=== PATIENT | female | born 1940 | race Caucasian/White ===

== ENCOUNTER 2020-01-10 15:01 | Outpatient (CLI) | payer MEDICARE, OTHER ==
[~2020-01-10 15:01] MED LIST: ASPI-605 PO; ATOR10TA GT; ATOR40TA PO; CLOP75TA15 PO; METO-295 PO
== END 2020-01-10 23:59 | disposition home or self-care (01) ==
LOC: MSC 15:01
PROVIDERS: ATTEND Internal Medicine
DX: G30.9 Alzheimer's disease, unspecified (principal); F02.80 Dementia in other diseases classified elsewhere, unspecified severity, without behavioral disturbance, psychotic disturbance, mood disturbance, and anxiety; I25.10 Atherosclerotic heart disease of native coronary artery without angina pectoris; M19.90 Unspecified osteoarthritis, unspecified site; E78.5 Hyperlipidemia, unspecified; G47.00 Insomnia, unspecified; Z87.898 Personal history of other specified conditions; H91.10 Presbycusis, unspecified ear

== ENCOUNTER 2020-02-05 09:36 | Outpatient (CLI) | payer MEDICARE, OTHER | END 2020-02-05 23:59 | disposition home or self-care (01) | LOC: MSC 09:36 | PROVIDERS: ATTEND Internal Medicine | DX: G30.9 Alzheimer's disease, unspecified (principal); F02.80 Dementia in other diseases classified elsewhere, unspecified severity, without behavioral disturbance, psychotic disturbance, mood disturbance, and anxiety; I25.10 Atherosclerotic heart disease of native coronary artery without angina pectoris; M19.90 Unspecified osteoarthritis, unspecified site; E78.5 Hyperlipidemia, unspecified; G47.00 Insomnia, unspecified; Z87.898 Personal history of other specified conditions; H91.10 Presbycusis, unspecified ear; Z79.899 Other long term (current) drug therapy ==

== ENCOUNTER 2020-03-04 09:44 | Outpatient (CLI) | payer MEDICARE, OTHER | END 2020-03-04 23:59 | disposition home or self-care (01) | LOC: MSC 09:44 | PROVIDERS: ATTEND Internal Medicine | DX: G30.9 Alzheimer's disease, unspecified (principal); F02.80 Dementia in other diseases classified elsewhere, unspecified severity, without behavioral disturbance, psychotic disturbance, mood disturbance, and anxiety; H91.10 Presbycusis, unspecified ear; I25.10 Atherosclerotic heart disease of native coronary artery without angina pectoris; M19.90 Unspecified osteoarthritis, unspecified site; E78.5 Hyperlipidemia, unspecified; G47.00 Insomnia, unspecified; Z87.898 Personal history of other specified conditions; Z95.5 Presence of coronary angioplasty implant and graft; Z79.899 Other long term (current) drug therapy ==

== ENCOUNTER 2020-06-03 10:10 | Outpatient (CLI) | payer MEDICARE, OTHER ==
[2020-06-03 11:53] LABS: BASOPHILS % (AUTO) 0.3 % (0.0-2.0); EOSINOPHILS % (AUTO) 0.4 % (0.0-6.0); HEMATOCRIT 40 % (33-45); HEMOGLOBIN 13.1 g/dL (11.5-14.8); LYMPHOCYTES # (AUTO) 1.2 /CMM (0.8-4.8); LYMPHOCYTES % (AUTO) 13.2 % (20.0-44.0); MEAN CORPUSCULAR HGB CONC 33 g/dl (31.0-36.0); MEAN CORPUSCULAR VOLUME 92 fL (82-100); MONOCYTES # (AUTO) 0.6 /CMM (0.1-1.30); MONOCYTES % (AUTO) 6.7 % (2.0-12.0); NEUTROPHILS # (AUTO) 7.3 /CMM (1.8-8.9); NEUTROPHILS % (AUTO) 79.4 % (43.0-81.0); PLATELET COUNT (AUTO) 155 /CMM (150-450); RED BLOOD CELL COUNT(AUTO) 4.32 MIL/uL (4.0-5.2); WHITE BLOOD COUNT (AUTO) 9.2 K/uL (4.3-11.0)
[2020-06-03 11:59] LABS: THYROID STIMULATING HORMONE 3.516 uIU/mL (0.358-3.74)
[2020-06-03 12:02] LABS: BILIRUBIN,URINE NEGATIVE (NEGATIVE); LEUKOCYTE ESTERASE ,URINE NEGATIVE (NEGATIVE); NITRITE, URINE NEGATIVE (NEGATIVE); PH,URINE 7.5 (5.0-8.0); PROTEIN,URINE NEGATIVE (NEGATIVE); UGLUCOSE NEGATIVE (NEGATIVE); UROBILINOGEN,URINE 0.2 EU/dL (0.2)
[2020-06-03 12:03] LABS: COLOR,URINE STRAW (YELLOW)
[2020-06-03 12:14] LABS: ALBUMIN 3.7 g/dL (3.4-5.0); BILIRUBIN,TOTAL 0.5 mg/dL (0.2-1.0); CALCIUM, SERUM 9.2 mg/dL (8.5-10.1); CREATININE 0.8 mg/dL (0.6-1.3); MAGNESIUM 2.3 mg/dL (1.8-2.4); PHOSPHORUS 3.9 mg/dL (2.5-4.9); POTASSIUM 4.2 mmol/L (3.5-5.1)
== END 2020-06-03 23:59 | disposition home or self-care (01) ==
LOC: MSC 10:10
PROVIDERS: ATTEND Internal Medicine
DX: G30.9 Alzheimer's disease, unspecified (principal); F02.80 Dementia in other diseases classified elsewhere, unspecified severity, without behavioral disturbance, psychotic disturbance, mood disturbance, and anxiety; I25.10 Atherosclerotic heart disease of native coronary artery without angina pectoris; Z95.5 Presence of coronary angioplasty implant and graft; M19.90 Unspecified osteoarthritis, unspecified site; E78.5 Hyperlipidemia, unspecified; G47.00 Insomnia, unspecified; Z87.898 Personal history of other specified conditions; R63.6 Underweight; Z68.1 Body mass index [BMI] 19.9 or less, adult; H91.10 Presbycusis, unspecified ear; Z79.899 Other long term (current) drug therapy; Z96.653 Presence of artificial knee joint, bilateral; H91.90 Unspecified hearing loss, unspecified ear
CPT/HCPCS: 36415; 80053; 80061; 81003; 82607; 82746; 83735; 84100; 84443; 85025; 87086; G0463

== ENCOUNTER → 2020-08-04 | Outpatient (CLI) | payer MEDICARE, OTHER | END | disposition home or self-care (01) | LOC: MSC 10:18 | PROVIDERS: ATTEND Internal Medicine | DX: G30.9 Alzheimer's disease, unspecified (principal); F02.80 Dementia in other diseases classified elsewhere, unspecified severity, without behavioral disturbance, psychotic disturbance, mood disturbance, and anxiety; I25.10 Atherosclerotic heart disease of native coronary artery without angina pectoris; M19.90 Unspecified osteoarthritis, unspecified site; E78.5 Hyperlipidemia, unspecified; G47.00 Insomnia, unspecified; Z87.898 Personal history of other specified conditions; H91.10 Presbycusis, unspecified ear; Z79.82 Long term (current) use of aspirin; Z79.899 Other long term (current) drug therapy ==

== ENCOUNTER 2020-08-11 11:45 | Outpatient (CLI) | payer MEDICARE | END 2020-08-11 23:59 | disposition home or self-care (01) | LOC: MSC 11:45 | PROVIDERS: ATTEND Internal Medicine | DX: G30.9 Alzheimer's disease, unspecified (principal); F02.80 Dementia in other diseases classified elsewhere, unspecified severity, without behavioral disturbance, psychotic disturbance, mood disturbance, and anxiety; G47.00 Insomnia, unspecified; I25.10 Atherosclerotic heart disease of native coronary artery without angina pectoris; Z95.5 Presence of coronary angioplasty implant and graft; M19.90 Unspecified osteoarthritis, unspecified site; E78.5 Hyperlipidemia, unspecified; Z87.898 Personal history of other specified conditions; H91.10 Presbycusis, unspecified ear ==

== ENCOUNTER 2020-08-20 11:45 | Outpatient (CLI) | payer MEDICARE | END 2020-08-20 23:59 | disposition home or self-care (01) | LOC: MSC 11:45 | PROVIDERS: ATTEND Internal Medicine | DX: G30.9 Alzheimer's disease, unspecified (principal); F02.80 Dementia in other diseases classified elsewhere, unspecified severity, without behavioral disturbance, psychotic disturbance, mood disturbance, and anxiety; I25.10 Atherosclerotic heart disease of native coronary artery without angina pectoris; Z95.5 Presence of coronary angioplasty implant and graft; M19.90 Unspecified osteoarthritis, unspecified site; E78.5 Hyperlipidemia, unspecified; G47.00 Insomnia, unspecified; Z87.898 Personal history of other specified conditions; H91.10 Presbycusis, unspecified ear; Z79.899 Other long term (current) drug therapy ==

== ENCOUNTER → 2020-10-22 | Outpatient (CLI) | payer MEDICARE | END | disposition home or self-care (01) | LOC: MSC 10:00 | PROVIDERS: ATTEND Internal Medicine | DX: G30.9 Alzheimer's disease, unspecified (principal); F02.80 Dementia in other diseases classified elsewhere, unspecified severity, without behavioral disturbance, psychotic disturbance, mood disturbance, and anxiety; I25.10 Atherosclerotic heart disease of native coronary artery without angina pectoris; Z95.5 Presence of coronary angioplasty implant and graft; M19.90 Unspecified osteoarthritis, unspecified site; E78.5 Hyperlipidemia, unspecified; G47.00 Insomnia, unspecified; Z87.898 Personal history of other specified conditions; H91.90 Unspecified hearing loss, unspecified ear ==

== ENCOUNTER 2021-02-16 10:56 | Outpatient (CLI) | payer MEDICARE | END 2021-02-16 23:59 | disposition home or self-care (01) | LOC: MSC 10:56 | PROVIDERS: ATTEND Internal Medicine | DX: G30.9 Alzheimer's disease, unspecified (principal); F02.80 Dementia in other diseases classified elsewhere, unspecified severity, without behavioral disturbance, psychotic disturbance, mood disturbance, and anxiety; R32 Unspecified urinary incontinence; I25.10 Atherosclerotic heart disease of native coronary artery without angina pectoris; Z79.82 Long term (current) use of aspirin; M19.90 Unspecified osteoarthritis, unspecified site; E78.5 Hyperlipidemia, unspecified; G47.00 Insomnia, unspecified; Z87.898 Personal history of other specified conditions; H91.10 Presbycusis, unspecified ear ==

== ENCOUNTER → 2021-02-22 | Outpatient (CLI) | payer MEDICARE | END | disposition home or self-care (01) | LOC: MSC 14:00 | PROVIDERS: ATTEND Internal Medicine | DX: R32 Unspecified urinary incontinence (principal); G30.9 Alzheimer's disease, unspecified; F02.80 Dementia in other diseases classified elsewhere, unspecified severity, without behavioral disturbance, psychotic disturbance, mood disturbance, and anxiety; I25.10 Atherosclerotic heart disease of native coronary artery without angina pectoris; Z95.5 Presence of coronary angioplasty implant and graft; Z79.82 Long term (current) use of aspirin; M19.90 Unspecified osteoarthritis, unspecified site; E78.5 Hyperlipidemia, unspecified; G47.00 Insomnia, unspecified; Z87.898 Personal history of other specified conditions; H91.10 Presbycusis, unspecified ear ==

== ENCOUNTER 2021-03-02 15:14 | Outpatient (CLI) | payer MEDICARE ==
[2021-03-02 16:37] LABS: BILIRUBIN,URINE NEGATIVE (NEGATIVE); COLOR,URINE YELLOW (YELLOW); LEUKOCYTE ESTERASE ,URINE NEGATIVE (NEGATIVE); NITRITE, URINE NEGATIVE (NEGATIVE); PH,URINE 5.5 (5.0-8.0); PROTEIN,URINE NEGATIVE (NEGATIVE); UGLUCOSE NEGATIVE (NEGATIVE); UROBILINOGEN,URINE 0.2 EU/dL (0.2)
[2021-03-02 17:16] LABS: SQUAMOUS EPITHELIAL CELL,UR Many /HPF (None Seen)
[2021-03-02 17:17] LABS: BACTERIA,URINE Rare /HPF (None Seen); RBC,URINE 0-2 /HPF (0-2)
== END 2021-03-02 23:59 | disposition home or self-care (01) ==
LOC: MSC 15:14
PROVIDERS: ATTEND Internal Medicine
DX: N39.0 Urinary tract infection, site not specified (principal); R32 Unspecified urinary incontinence; G30.9 Alzheimer's disease, unspecified; F02.80 Dementia in other diseases classified elsewhere, unspecified severity, without behavioral disturbance, psychotic disturbance, mood disturbance, and anxiety; I25.10 Atherosclerotic heart disease of native coronary artery without angina pectoris; Z95.5 Presence of coronary angioplasty implant and graft; Z79.82 Long term (current) use of aspirin; M19.90 Unspecified osteoarthritis, unspecified site; E78.5 Hyperlipidemia, unspecified; G47.00 Insomnia, unspecified; Z87.898 Personal history of other specified conditions; H91.10 Presbycusis, unspecified ear; Z79.899 Other long term (current) drug therapy
CPT/HCPCS: 81001; 87086; G0463

== ENCOUNTER → 2021-03-05 | Outpatient (CLI) | payer MEDICARE | END | disposition home or self-care (01) | LOC: MSC 09:00 | PROVIDERS: ATTEND Internal Medicine | DX: R15.9 Full incontinence of feces (principal); Z87.440 Personal history of urinary (tract) infections; R32 Unspecified urinary incontinence; G30.9 Alzheimer's disease, unspecified; F02.80 Dementia in other diseases classified elsewhere, unspecified severity, without behavioral disturbance, psychotic disturbance, mood disturbance, and anxiety; I25.10 Atherosclerotic heart disease of native coronary artery without angina pectoris; Z95.5 Presence of coronary angioplasty implant and graft; Z79.82 Long term (current) use of aspirin; M19.90 Unspecified osteoarthritis, unspecified site; E78.5 Hyperlipidemia, unspecified; G47.00 Insomnia, unspecified; Z87.898 Personal history of other specified conditions; H91.10 Presbycusis, unspecified ear ==

== ENCOUNTER 2021-03-09 09:00 | Outpatient (CLI) | payer MEDICARE | END 2021-03-09 23:59 | disposition home or self-care (01) | LOC: MSC 09:00 | PROVIDERS: ATTEND Internal Medicine | DX: R15.9 Full incontinence of feces (principal); G30.9 Alzheimer's disease, unspecified; F02.80 Dementia in other diseases classified elsewhere, unspecified severity, without behavioral disturbance, psychotic disturbance, mood disturbance, and anxiety; R32 Unspecified urinary incontinence; N39.0 Urinary tract infection, site not specified; I25.10 Atherosclerotic heart disease of native coronary artery without angina pectoris; Z95.5 Presence of coronary angioplasty implant and graft; M19.90 Unspecified osteoarthritis, unspecified site; E78.5 Hyperlipidemia, unspecified; G47.00 Insomnia, unspecified; Z87.898 Personal history of other specified conditions; H91.10 Presbycusis, unspecified ear ==

== ENCOUNTER 2021-03-16 09:14 | Outpatient (CLI) | payer MEDICARE | END 2021-03-16 23:59 | LOC: MSC 09:14 | PROVIDERS: ATTEND Internal Medicine | DX: R15.9 Full incontinence of feces (principal); R32 Unspecified urinary incontinence; G30.9 Alzheimer's disease, unspecified; F02.80 Dementia in other diseases classified elsewhere, unspecified severity, without behavioral disturbance, psychotic disturbance, mood disturbance, and anxiety; Z87.440 Personal history of urinary (tract) infections; I25.10 Atherosclerotic heart disease of native coronary artery without angina pectoris; Z95.5 Presence of coronary angioplasty implant and graft; M19.90 Unspecified osteoarthritis, unspecified site; E78.5 Hyperlipidemia, unspecified; G47.00 Insomnia, unspecified; Z87.898 Personal history of other specified conditions; H91.10 Presbycusis, unspecified ear; Z79.82 Long term (current) use of aspirin; Z79.899 Other long term (current) drug therapy ==

== ENCOUNTER 2025-02-11 09:04 | Inpatient (IN) | payer MEDICARE ==
[~2025-02-11] VITALS: Ht 160 cm; Wt 39.9 kg
[2025-02-11] VITALS (13 sets, daily range): BP systolic 99–158; BP diastolic 57–144; TEMP 97.8; O2SAT 90–99
[2025-02-11] MEDS ORDERED: ACETAMINOPHEN 650 MG/SUPP.RECT RC ONE (09:19)
[2025-02-11] MEDS ORDERED: ACETAMINOPHEN 325 MG/SUPP.RECT RC ONE (09:19)
[2025-02-11] MEDS: ACETAMINOPHEN 650 MG/SUPP.RECT RC ONE (09:22)
[2025-02-11] MEDS: IV NS 0.9% 1,000 ML BAG IV ONE (09:25)
[2025-02-11 09:26] LABS: PLATELET COUNT (AUTO) 189 K/uL (150-450); RED BLOOD CELL COUNT(AUTO) 4.62 MIL/uL (4.0-5.2); RED CELL DISTRIBUTION WIDTH 13.2 % (11.5-15.0); WHITE BLOOD COUNT (AUTO) 20.2 K/uL (4.3-11.0)
[2025-02-11 09:38] LABS: INR 1.1 (0.91-1.10)
[2025-02-11] MEDS: CEFEPIME 1 GM in IV D5W 50 ML IV ONE (09:39)
[2025-02-11 09:43] LABS: LACTIC ACID 3.2 mmol/L (0.4-2.0)
[2025-02-11 09:46] LABS: CALCIUM, SERUM 8.6 mg/dL (8.5-10.1); CREATININE 0.8 mg/dL (0.6-1.3); SODIUM SERUM 142 mmol/L (136-145); UREA NITROGEN, BLOOD 17 mg/dL (7-18)
[2025-02-11 09:51] LABS: ASPARTATE AMINOTRANSFERASE 21 U/L (15-37); TOTAL PROTEIN, SERUM 7.1 g/dL (6.4-8.2)
[2025-02-11 09:52] LABS: BAND % (MANUAL) 2 % (0.0-5.0); LYMPHOCYTES % (MANUAL) 2 % (16-48); MONOCYTES % (MANUAL) 6 % (0-11.0); NEUTROPHILS % (MANUAL) 90 (42-76); PLATELET ESTIMATE ADEQUATE
[2025-02-11] MEDS: VANCOMYCIN 1 GM in IV D5W 250 ML IV ONE (09:57)
[2025-02-11 10:21] LABS: APPEARANCE,URINE TURBID (CLEAR); BLOOD, URINE 1+ Ery/uL (NEGATIVE); LEUKOCYTE ESTERASE ,URINE NEGATIVE (NEGATIVE); NITRITE, URINE POSITIVE (NEGATIVE); UGLUCOSE NEGATIVE (NEGATIVE)
[2025-02-11 10:30] LABS: ADD URINE CULTURE YES; SQUAMOUS EPITHELIAL CELL,UR 0-2 /HPF (None Seen); URINE AMORPHOUS URATE Moderate /HPF (None Seen)
[2025-02-11] MEDS ORDERED: CT SWABBABLE VALVE TRANS SET 1 EA INFUS.SET MC ONE (10:50)
[2025-02-11] MEDS ORDERED: IOHEXOL-300 100 ML VIAL IV ONE (10:50)
[2025-02-11] MEDS ORDERED: IV NS 0.9% 250 ML IV ONE (10:50)
[2025-02-11] MEDS ORDERED: CARB1TAB21 PO ×2 (11:05)
[2025-02-11] MEDS ORDERED: ACET325T53 PO ×2 (11:05)
[2025-02-11] MEDS ORDERED: LACT-214 PO (11:05)
[2025-02-11] MEDS ORDERED: ATOR40TA PO (11:05)
[2025-02-11] MEDS ORDERED: POLY50DR EACHEYE (11:05)
[2025-02-11] MEDS ORDERED: MAG-135 PO (11:05)
[2025-02-11] MEDS ORDERED: TRAZ-182 PO (11:05)
[2025-02-11] MEDS ORDERED: SENN-287 PO (11:05)
[2025-02-11] MEDS ORDERED: DIVA125C5 PO (11:05)
[2025-02-11] MEDS ORDERED: MAGN400O6 PO (11:05)
[2025-02-11] MEDS ORDERED: LOPE2TAB25 PO (11:05)
[2025-02-11] MEDS ORDERED: HYOS-17 SL (11:05)
[2025-02-11] MEDS ORDERED: ONDA4TAB5 PO (11:05)
[2025-02-11] MEDS ORDERED: SODI650T PO (11:05)
[2025-02-11] MEDS ORDERED: DOSING PER PHARMACY-CEFEPIME IVPB XX PRN (12:30)
[2025-02-11] MEDS ORDERED: ACETAMINOPHEN 325 MG TABLET PO PRN (12:30)
[2025-02-11] MEDS ORDERED: DOSING PER PHARMACY-VANCOMYCIN IV XX PRN (12:30)
[2025-02-11] MEDS ORDERED: ONDANSETRON HCL/PF 4 MG/2 ML VIAL IVP PRN (12:30)
[2025-02-11] MEDS ORDERED: MORPHINE SULFATE INJ 2 MG/ML DISP.SYRIN IV PRN (12:30)
[2025-02-11] MEDS: IV NS 0.9% 1,000 ML IV SCH (13:03)
[2025-02-11 13:25] LABS: ABG BASE EXCESS -4.5 mmol/L (-2.0-3.0); ABG OXYGEN SATURATION 97.6 % (94.0-98.0); ABG PCO2 30.3 mmHg (32.0-45.0); ABG PH 7.415 (7.350-7.450); ABG PO2 108.9 mmHg (83.0-108.0); ABG TOTAL HEMOGLOBIN 12.5 G/dL (12.0-16.0); FLOW, BLOOD GAS 8.00 L/min (0.00-30.00); FRACTIONATED INSPIRED OXYGEN 52.0 %; SITE, ABG RIGHT RADIAL
[2025-02-11] MEDS: ALBUTEROL FS 2.5 MG/3 ML VIAL.NEB NEB SCH (13:33)
[2025-02-11] MEDS: IPRATROPIUM NEB FS 0.5 MG/2.5 ML AMPUL.NEB NEB SCH (13:33)
[2025-02-11] MEDS: DOCUSATE SODIUM LIQ 100 MG/10 ML UDC PO SCH (17:00)
[2025-02-11] MEDS ORDERED: LORAZEPAM 4 MG/ML VIAL IV PRN (17:00)
[2025-02-11] MEDS: CARBIDOPA/LEVODOPA 25/100 MG 1 UDTAB PO SCH ×2 (17:00→22:00)
[2025-02-11] MEDS: DIVALPROEX SODIUM 125 MG CAP.SPRINK PO SCH (17:20)
[2025-02-11] MEDS: CEFEPIME 2 GM in IV D5W 100 ML IV SCH (20:31)
[2025-02-11] MEDS: HEPARIN SODIUM, PORCINE 5000 UNITS/1 ML VIAL SQ SCH (20:33)
[2025-02-11] MEDS: TRAZODONE 50 MG TABLET PO SCH (22:00)
[2025-02-11] MEDS: ATORVASTATIN 40 MG TABLET PO SCH (22:00)
[2025-02-12] VITALS (32 sets, daily range): BP systolic 89–167; BP diastolic 49–143; TEMP 96.9–98; O2SAT 95–100
[2025-02-12 04:42] LABS: PLATELET COUNT (AUTO) 150 K/uL (150-450); RED BLOOD CELL COUNT(AUTO) 3.92 MIL/uL (4.0-5.2); RED CELL DISTRIBUTION WIDTH 13.5 % (11.5-15.0); WHITE BLOOD COUNT (AUTO) 15.4 K/uL (4.3-11.0)
[2025-02-12 05:04] LABS: ASPARTATE AMINOTRANSFERASE 12.0 U/L (15-37); CALCIUM, SERUM 8.7 mg/dL (8.5-10.1); CREATININE 0.7 mg/dL (0.6-1.3); PHOSPHORUS 2.3 mg/dL (2.5-4.9); SODIUM SERUM 144.0 mmol/L (136-145); TOTAL PROTEIN, SERUM 5.9 g/dL (6.4-8.2); UREA NITROGEN, BLOOD 13.0 mg/dL (7-18)
[2025-02-12] MEDS: ARTIFICIAL TEARS 15 ML BOTTLE EACHEYE SCH (08:38)
[2025-02-12] MEDS: POLYETHYLENE GLYCOL 3350 17 GM POWD.PACK PO SCH (09:00)
[2025-02-12] MEDS: CLOPIDOGREL BISULFATE 75 MG TABLET PO SCH (09:00)
[2025-02-12] MEDS: LACTOSE-FREE FOOD 237 ML BOTTLE PO SCH (09:00)
[2025-02-12] MEDS: VANCOMYCIN 750 MG in IV D5W 250 ML IV SCH (09:34)
[2025-02-12] MEDS: IV NS 0.9% 1,000 ML IV PRN (09:41)
[2025-02-12] MEDS: Sodium Phosphate 15 MMOL in IV NS 0.9% 245 ML IV ONE (17:03)
[2025-02-13] VITALS (23 sets, daily range): BP systolic 112–155; BP diastolic 59–110; TEMP 97.7–98.4; O2SAT 96–100
[2025-02-13 05:14] LABS: PLATELET COUNT (AUTO) 157 K/uL (150-450); RED BLOOD CELL COUNT(AUTO) 3.77 MIL/uL (4.0-5.2); RED CELL DISTRIBUTION WIDTH 13.1 % (11.5-15.0); WHITE BLOOD COUNT (AUTO) 15.6 K/uL (4.3-11.0)
[2025-02-13 05:18] LABS: CALCIUM, SERUM 7.2 mg/dL (8.5-10.1); CREATININE 0.4 mg/dL (0.6-1.3); PHOSPHORUS 2.9 mg/dL (2.5-4.9); SODIUM SERUM 142.0 mmol/L (136-145); UREA NITROGEN, BLOOD 12.0 mg/dL (7-18)
[2025-02-13] MEDS: POTASSIUM CL. PREMIX PERIPHER. 50 ML IV SCH (10:38)
[2025-02-14] VITALS (15 sets, daily range): BP systolic 117–166; BP diastolic 50–151; TEMP 97.5–98.1; O2SAT 87–98
[2025-02-14] MEDS: ALBUTEROL FS 2.5 MG/0.5 ML VIAL.NEB NEB PRN (01:39)
[2025-02-14 07:21] LABS: PLATELET COUNT (AUTO) 167 K/uL (150-450); RED BLOOD CELL COUNT(AUTO) 3.81 MIL/uL (4.0-5.2); RED CELL DISTRIBUTION WIDTH 13.6 % (11.5-15.0); WHITE BLOOD COUNT (AUTO) 13.4 K/uL (4.3-11.0)
[2025-02-14 07:42] LABS: CALCIUM, SERUM 8.2 mg/dL (8.5-10.1); CREATININE 0.4 mg/dL (0.6-1.3); PHOSPHORUS 2.6 mg/dL (2.5-4.9); SODIUM SERUM 141.0 mmol/L (136-145); UREA NITROGEN, BLOOD 12.0 mg/dL (7-18)
[2025-02-14] MEDS: HYOSCYAMINE SULFATE 0.125 MG TAB.SUBL SL PRN (08:58)
[2025-02-14] MEDS: ENSURE ENLIVE 237 ML LIQUID (VANILLA) PO SCH (12:07)
[2025-02-14] MEDS ORDERED: LORAZEPAM INJ 2 MG/ML VIAL IV PRN (15:00)
[2025-02-14] MEDS: MAGNESIUM HYDROXIDE 30 ML UDC PO PRN (21:47)
[2025-02-14] MEDS: VANCOMYCIN 500 MG in IV D5W 100ml IV SCH (22:15)
[2025-02-14] MEDS ORDERED: VANCOMYCIN 750 MG in IV D5W 250 ML IV SCH (23:00)
[2025-02-15] VITALS (14 sets, daily range): BP systolic 91–116; BP diastolic 69–90; TEMP 97.7–99; O2SAT 93–98
[2025-02-15 07:46] LABS: PLATELET COUNT (AUTO) 173 K/uL (150-450); RED BLOOD CELL COUNT(AUTO) 4.28 MIL/uL (4.0-5.2); RED CELL DISTRIBUTION WIDTH 13.1 % (11.5-15.0); WHITE BLOOD COUNT (AUTO) 14.0 K/uL (4.3-11.0)
[2025-02-15 08:00] LABS: CALCIUM, SERUM 8.4 mg/dL (8.5-10.1); CREATININE 0.4 mg/dL (0.6-1.3); SODIUM SERUM 138.0 mmol/L (136-145); UREA NITROGEN, BLOOD 10.0 mg/dL (7-18)
[2025-02-15 09:46] LABS: LYMPHOCYTES % (MANUAL) 7 % (16-48); MONOCYTES % (MANUAL) 3 % (0-11.0); NEUTROPHILS % (MANUAL) 90 (42-76); PLATELET ESTIMATE ADEQUATE
[2025-02-16] VITALS (15 sets, daily range): BP systolic 98–132; BP diastolic 64–91; TEMP 97.5–99.2; O2SAT 96–99
[2025-02-16] MEDS: NA PHOS,M-B/NA PHOS,DI-BA 1 EA ENEMA RC PRN (05:22)
[2025-02-16 07:16] LABS: PLATELET COUNT (AUTO) 198 K/uL (150-450); RED BLOOD CELL COUNT(AUTO) 4.42 MIL/uL (4.0-5.2); RED CELL DISTRIBUTION WIDTH 13.5 % (11.5-15.0); WHITE BLOOD COUNT (AUTO) 15.6 K/uL (4.3-11.0)
[2025-02-16 07:37] LABS: CALCIUM, SERUM 8.7 mg/dL (8.5-10.1); CREATININE 0.5 mg/dL (0.6-1.3); SODIUM SERUM 141.0 mmol/L (136-145); UREA NITROGEN, BLOOD 14.0 mg/dL (7-18)
[2025-02-16] MEDS: AZITHROMYCIN 500 MG in IV D5W 250 ML IV SCH (21:02)
[2025-02-17] VITALS (14 sets, daily range): BP systolic 94–132; BP diastolic 53–86; TEMP 97.3–99.1; O2SAT 96–100
[2025-02-17 06:10] LABS: PLATELET COUNT (AUTO) 204 K/uL (150-450); RED BLOOD CELL COUNT(AUTO) 4.25 MIL/uL (4.0-5.2); RED CELL DISTRIBUTION WIDTH 13.0 % (11.5-15.0); WHITE BLOOD COUNT (AUTO) 13.9 K/uL (4.3-11.0)
[2025-02-17 06:19] LABS: CALCIUM, SERUM 8.9 mg/dL (8.5-10.1); CREATININE 0.4 mg/dL (0.6-1.3); SODIUM SERUM 142.0 mmol/L (136-145); UREA NITROGEN, BLOOD 12.0 mg/dL (7-18)
[2025-02-18] VITALS (14 sets, daily range): BP systolic 107–155; BP diastolic 61–87; TEMP 97.5–99.9; O2SAT 94–100
[2025-02-18 06:38] LABS: PLATELET COUNT (AUTO) 225 K/uL (150-450); RED BLOOD CELL COUNT(AUTO) 4.33 MIL/uL (4.0-5.2); RED CELL DISTRIBUTION WIDTH 12.8 % (11.5-15.0); WHITE BLOOD COUNT (AUTO) 10.9 K/uL (4.3-11.0)
[2025-02-18 06:45] LABS: CALCIUM, SERUM 8.7 mg/dL (8.5-10.1); CREATININE 0.5 mg/dL (0.6-1.3); SODIUM SERUM 144.0 mmol/L (136-145); UREA NITROGEN, BLOOD 10.0 mg/dL (7-18)
[2025-02-18] MEDS: MEGESTROL ACETATE SUSP 400 MG/10 ML UDC PO SCH (14:30)
[2025-02-19] VITALS (16 sets, daily range): BP systolic 108–133; BP diastolic 60–108; TEMP 97.9–99.3; O2SAT 97–100
[2025-02-19 06:38] LABS: CALCIUM, SERUM 8.6 mg/dL (8.5-10.1); CREATININE 0.5 mg/dL (0.6-1.3); PHOSPHORUS 3.4 mg/dL (2.5-4.9); SODIUM SERUM 143.0 mmol/L (136-145); UREA NITROGEN, BLOOD 14.0 mg/dL (7-18)
[2025-02-19 07:14] LABS: PLATELET COUNT (AUTO) 198 K/uL (150-450); RED BLOOD CELL COUNT(AUTO) 4.19 MIL/uL (4.0-5.2); RED CELL DISTRIBUTION WIDTH 13.2 % (11.5-15.0); WHITE BLOOD COUNT (AUTO) 11.9 K/uL (4.3-11.0)
[2025-02-19] MEDS ORDERED: POTASSIUM CHLORIDE 20 MEQ POWDER PACKET PO ONE (10:30)
[2025-02-19] MEDS: POTASSIUM CL. PREMIX PERIPHER. 50 ML IV SCH (11:17)
[2025-02-19 11:30] LABS: EOSINOPHILS % (MANUAL) 3 % (0-4); LYMPHOCYTES % (MANUAL) 4 % (16-48); MONOCYTES % (MANUAL) 6 % (0-11.0); MYELOCYTES % 4 % (0-0); NEUTROPHILS % (MANUAL) 83 (42-76); PLATELET ESTIMATE ADEQUATE
[2025-02-20] VITALS (14 sets, daily range): BP systolic 109–130; BP diastolic 62–87; TEMP 97.7–98.6; O2SAT 95–100
[2025-02-20 06:57] LABS: PLATELET COUNT (AUTO) 197 K/uL (150-450); RED BLOOD CELL COUNT(AUTO) 4.26 MIL/uL (4.0-5.2); RED CELL DISTRIBUTION WIDTH 13.1 % (11.5-15.0); WHITE BLOOD COUNT (AUTO) 12.6 K/uL (4.3-11.0)
[2025-02-20 07:29] LABS: CALCIUM, SERUM 8.5 mg/dL (8.5-10.1); CREATININE 0.4 mg/dL (0.6-1.3); PHOSPHORUS 3.3 mg/dL (2.5-4.9); SODIUM SERUM 139.0 mmol/L (136-145); UREA NITROGEN, BLOOD 11.0 mg/dL (7-18)
[2025-02-20] MEDS: MODAFINIL 100 MG TABLET PO SCH (11:38)
[2025-02-20] MEDS: AZITHROMYCIN 250 MG TABLET PO SCH (20:36)
[2025-02-21] VITALS (8 sets, daily range): BP systolic 104–131; BP diastolic 70–82; TEMP 98.1–99.4; O2SAT 95–100
[2025-02-21 07:07] LABS: PLATELET COUNT (AUTO) 188 K/uL (150-450); RED BLOOD CELL COUNT(AUTO) 4.17 MIL/uL (4.0-5.2); RED CELL DISTRIBUTION WIDTH 13.3 % (11.5-15.0); WHITE BLOOD COUNT (AUTO) 12.3 K/uL (4.3-11.0)
[2025-02-21 07:22] LABS: CALCIUM, SERUM 8.6 mg/dL (8.5-10.1); CREATININE 0.4 mg/dL (0.6-1.3); PHOSPHORUS 3.8 mg/dL (2.5-4.9); SODIUM SERUM 140.0 mmol/L (136-145); UREA NITROGEN, BLOOD 12.0 mg/dL (7-18)
[2025-02-21] MEDS ORDERED: Modafinil PO (11:49)
[2025-02-21] MEDS ORDERED: AZIT500T4 PO (11:49)
[2025-02-21] MEDS ORDERED: MEGE400O5 PO (11:49)
[2025-02-21] MEDS: AZITHROMYCIN 250 MG TABLET PO SCH (12:48)
== END 2025-02-21 21:09 | disposition hospice, inpatient (51) | DRG 871 ==
LOC: ER 09:08 → TELE1 10:45 → TELE-TD 12:56 → ICU 14:03 → TELE-TD 02-13 07:59 → TELE1 02-16 11:27 → MEDSG1 02-20 09:29
PROVIDERS: ADMIT Internal Medicine; ATTEND Student in an Organized Health Care Education/Training Program
DX: A41.9 Sepsis, unspecified organism (principal); G93.41 Metabolic encephalopathy; L89.313 Pressure ulcer of right buttock, stage 3; J69.0 Pneumonitis due to inhalation of food and vomit; J96.01 Acute respiratory failure with hypoxia; R53.2 Functional quadriplegia; E87.20 Acidosis, unspecified; R65.20 Severe sepsis without septic shock; F02.C0 Dementia in other diseases classified elsewhere, severe, without behavioral disturbance, psychotic disturbance, mood disturbance, and anxiety; Z79.02 Long term (current) use of antithrombotics/antiplatelets; E44.0 Moderate protein-calorie malnutrition; G20.A1 Parkinson's disease without dyskinesia, without mention of fluctuations; I10 Essential (primary) hypertension; R64 Cachexia; Z68.1 Body mass index [BMI] 19.9 or less, adult; Z66 Do not resuscitate; I25.10 Atherosclerotic heart disease of native coronary artery without angina pectoris; G30.9 Alzheimer's disease, unspecified; Z88.8 Allergy status to other drugs, medicaments and biological substances; Z79.899 Other long term (current) drug therapy; Z74.01 Bed confinement status; L22 Diaper dermatitis; L89.156 Pressure-induced deep tissue damage of sacral region; Y95 Nosocomial condition; Z86.73 Personal history of transient ischemic attack (TIA), and cerebral infarction without residual deficits
CPT/HCPCS: 31720; 36415; 70450-TC; 71045-TC; 80048-TC; 80053-TC; 80076-TC; 80202-TC; 81001; 82803-TC; 83605-TC; 83735-TC; 84100-TC; 84443-TC; 85025-TC; 85027-TC; 85730-TC; 87040-TC; 87070-TC; 87081-TC; 87086-TC; 87205-TC; 92526; 92611; 94760-TC; 94762-TC; 94799-TC; A4223; A9563; G0378; J0456; J0692; J1644; J2919; J3373; J3374; J3480; J7030; J7040; J7050; J7060; Q9967